=== PATIENT | female | born 1940 ===

== ENCOUNTER 2017-01-20 13:08 | Emergency (ER) | payer MEDICAID, MEDICARE ==
[2017-01-20 13:17] VITALS: BMI 27.3
--- NOTE | 2017-01-20 15:05 | C.PDOC ---
History Of Present Illness 76 y/o female sent to the ED by dr ruiz, for left leg DVT study. Pt complaints of intermittent left leg for the past year. Otherwise, denies any fever, chest pain, shortness of breath, or any other complaints at this time. Time Seen by Provider: 01/20/17 13:41 Chief Complaint (Nursing): Lower Extremity Problem/Injury History Per: Patient History/Exam Limitations: no limitations Onset/Duration Of Symptoms: Days (1 year) Current Symptoms Are (Timing): Still Present Recent travel outside of the [place]: No Additional History Per: Patient Past Medical History Reviewed: Historical Data, Nursing Documentation, Vital Signs Vital Signs: Last Vital Signs Temp 97.6 F 01/20/17 16:56 Pulse 69 01/20/17 16:56 Resp 18 01/20/17 16:56 BP 138/84 01/20/17 16:56 Pulse Ox 98 01/20/17 16:56 - Medical History PMH: Arthritis, HTN Family History: States: Unknown Family Hx - Social History Hx Alcohol Use: No Hx Substance Use: No Review Of Systems Except As Marked, All Systems Reviewed And Found Negative. Constitutional: Negative for: Fever, Chills Cardiovascular: Negative for: Chest Pain, Palpitations Respiratory: Negative for: Shortness of Breath Musculoskeletal: Positive for: Leg Pain (left leg pain and swelling) Physical Exam - Physical Exam Appears: Non-toxic, No Acute Distress Skin: Normal Color, Warm, Dry Head: Atraumatic, Normacephalic Eye(s): bilateral: Normal Inspection Neck: Normal ROM, Supple Chest: Symmetrical Cardiovascular: Rhythm Regular, No Murmur Respiratory: Normal Breath Sounds, No Accessory Muscle Use, No Rales, No Rhonchi , No Wheezing Extremity: Normal ROM, Tenderness (left leg), Capillary Refill (< 2 sec.), No Deformity, Swelling (mild left leg) Extremity: Bilateral: Atraumatic, Normal Color And Temperature, Normal ROM Pulses: Left Dorsalis Pedis: Normal, Right Dorsalis Pedis: Normal Neurological/Psych: Oriented x3, Normal Speech, Normal Cognition, Normal Motor, Normal Sensation ED Course And Treatment - Laboratory Results Result Diagrams: 01/20/17 15:40 01/20/17 15:40 O2 Sat by Pulse Oximetry: 100 (RA) Pulse Ox Interpretation: Normal Progress Note: Blood work, venous duplex of LLE ordered and reviewed. Pt was treated with Toradol. Medical Decision Making Medical Decision Making: labs dvt study neg. attempted to reach dr ruiz to update. unabel to reach. pt asking for d/c ambuatlory in er w/o distress Disposition - Disposition Disposition: HOME/ ROUTINE Disposition Time: 04:00 Condition: STABLE Additional Instructions: please follow up with your doctor. return to er with worsening symptoms or concerns. Prescriptions: Naproxen [Naprosyn] 500 mg PO BID PRN #14 tablet PRN Reason: Pain, Mild (1-3) Instructions: Leg Pain (ED) Forms: IMANIN (Croatian) - Clinical Impression Clinical Impression: Leg pain - Scribe Statement The provider has reviewed the documentation as recorded by the Scribe Deepak Hammonds All medical record entries made by the Scribe were at my direction and personally dictated by me. I have reviewed the chart and agree that the record accurately reflects my personal performance of the history, physical exam, medical decision making, and the department course for this patient. I have also personally directed, reviewed, and agree with the discharge instructions and disposition.
[2017-01-20 15:28] VITALS: RESP 18
[2017-01-20 15:50] LABS: BASO % 0.4 % (0.0-2.0); EOS # 0.2 K/uL (0.0-0.7); EOS % 2.2 % (0.0-4.0); HEMATOCRIT 36.4 % (34.0-47.0); LYMPH % 38.3 % (20.0-40.0); MEAN CELL VOLUME 94.8 fL (81.0-99.0); MEAN CORPUSCULAR HEMOGLOBIN 31.5 pg (27.0-31.0); MEAN CORPUSCULAR HGB CONC 33.2 g/dL (33.0-37.0); MEAN PLATELET VOLUME 9.1 fL (7.2-11.7); MONO # 0.7 K/uL (0.0-0.8); MONO % 8.4 % (0.0-10.0); NRBC % 0.1 % (0.0-2.0); RED CELL DISTRIBUTION WIDTH 13.3 % (11.5-14.5); WHITE BLOOD COUNT 7.9 K/uL (4.8-10.8)
[2017-01-20 15:54] LABS: POTASSIUM 4.1 mmol/L (3.6-5.2)
[2017-01-20 15:56] LABS: BILIRUBIN,TOTAL 0.4 mg/dL (0.2-1.3)
[2017-01-20 15:57] LABS: ALB/GLOB RATIO 1.1 (1.0-2.1); CALCIUM 9.4 mg/dl (8.6-10.4)
[2017-01-20 17:00] VITALS: BP 138/84; PULSE 69; TEMP 97.6
[2017-01-20 18:17] VITALS: O2SAT 100
--- NOTE | 2017-01-23 14:40 | VASCLAB ---
PROCEDURE: Left Lower Extremity Venous Duplex Exam. HISTORY: leg pain ro dvt PRIORS: None. TECHNIQUE: Left common femoral, femoral, popliteal and posterior tibial, peroneal and great saphenous veins were evaluated. Flow was assessed with color Doppler, compressibility, assessment of phasic flow and augmentation response. Report prepared by BRENTON Coker, RVT FINDINGS: LEFT: 1. Common Femoral Vein: 1.1. Compressibility - Fully compressible: Thrombus - None : Flow - Phasic: Augmentation -Normal: Reflux - None. 2. Femoral Vein: 2.1. Compressibility - Fully compressible: Thrombus - None: Flow - Phasic: Augmentation -Normal: Reflux - None. 3. Popliteal Vein: 3.1. Compressibility - Fully compressible: Thrombus - None: Flow - Phasic: Augmentation -Normal: Reflux - None. 4. Posterior Tibial Vein: 4.1. Compressibility - Fully compressible: Thrombus - None: Flow - Phasic: Augmentation -Normal: Reflux - None. 5. Peroneal Vein: 5.1. Compressibility - Fully compressible: Thrombus - None: Flow - Phasic: Augmentation -Normal: Reflux - None. 6. Great Saphenous Vein: 6.1. Compressibility - Fully compressible: Thrombus - None: Flow - Phasic: Augmentation - Normal: Reflux - None. OTHER FINDINGS: IMPRESSION: No evidence of deep or superficial vein thrombosis of the left lower extremity with excellent venous flow. Normal valve function noted of the left side. Normal venous flow noted in the right common femoral vein.
== END 2017-01-20 17:25 | disposition home or self-care (01) ==
LOC: C.ER 13:08 → MERGE 13:08 → C.ER 17:25
DX: M79.605 Pain in left leg (principal); I10 Essential (primary) hypertension
CPT/HCPCS: 80053; 85025; 85610; 85730; 93971; 96374; 99285; J1885